=== PATIENT | male | born 1955 | race Caucasian/White ===

== ENCOUNTER 2017-08-11 17:34 | Emergency (ER) | payer MEDICARE, BC ==
[2017-08-11 17:44] VITALS: RESP 18; TEMP 97
[2017-08-11 18:51] LABS: Anisocytosis Slight; Basophils % (A) 0 %; CH 30.9; CHCM 33.5; Eosinophils % (A) 1 %; HCT 40.6 % (39.0-53.0); HDW 3.52; HGB 13.2 gm/dL (13.0-17.5); Hypochromasia Slight; Luc # (Auto) 0.03; Luc % (Auto) 1; Lymphocytes # (A) 0.2 k/uL (1.0-4.8); Lymphocytes % (A) 7 %; MCH 30.2 pg (25.0-35.0); MCHC 32.7 g/dL (31.0-37.0); MCV 92.6 fL (80.0-100.0); Mean Platelet Volume 7.5; Monocytes # (A) 0.2 k/uL (0-1.0); Monocytes % (A) 6 %; Neutrophils # (A) 2.5 k/uL (1.3-7.7); Neutrophils % (A) 86 %; Poikilocytosis Slight; RBC 4.38 m/uL (4.30-5.90); RDW 16.4 % (11.5-15.5); WBC 2.9 k/uL (3.8-10.6); WBC (Perox) 2.84
[2017-08-11 18:56] LABS: Anion Gap 9 mmol/L; Blood Urea Nitrogen 18 mg/dL (9-20); Carbon Dioxide 23 mmol/L (22-30); Chloride 109 mmol/L (98-107); Glucose 68 mg/dL (74-99); Non-African American GFR(MDRD) >60 (>60 ml/min/1.73 sqM); Potassium 4.8 mmol/L (3.5-5.1); Sodium 141 mmol/L (137-145)
[2017-08-11 19:04] LABS: Manual Review Performed; Ovalocytes Present
--- NOTE | 2017-08-11 19:04 | CT ---
EXAMINATION: CT brain wo con DATE AND TIME: 08/11/2017 6:51 PM ORDERING PROVIDER: Stoney Hylton DO CLINICAL INDICATION: Change in mental status TECHNIQUE: Standard departmental protocol. COMPARISON: None. DESCRIPTION: The calvarium is intact. There is no intracranial hemorrhage. There is no mass or mass e ffect. There is no definite new attenuation defect. Remainder of the intra-axial and extra-axial comp artment examination is unremarkable. The paranasal sinuses, middle ear cavities, and mastoid sinus ai r cells are clear. The orbits are intact. IMPRESSION: NO ACUTE PROCESS.
--- NOTE | 2017-08-11 19:21 | ED ---
General Adult HPI - General Chief complaint: Anxiety Stated complaint: Anxiety Time Seen by Provider: 08/11/17 17:36 Source: EMS Mode of arrival: EMS Limitations: no limitations - History of Present Illness Initial comments: 62-year-old male presented for evaluation of bizarre behavior at home. States that she heard a few loud thuds come from the kitchen and when she came down stairs she found her getting up off the floor. She states that his hands and arms are rising above and behind his head and that he was not acting himself. He seemed to be in significant distress however was not indicating any pain. When she tried to question him concerning his actions he started to swear at her and DL. She called EMS and upon their arrival his activity it stopped and he returned to baseline. The patient denies any chest pain, shortness breath, headache, fever, chills, nausea, vomiting. He states that he has been on chemo for the last 6 months for renal cancer that has metastasized and informed to masses neck his pancreas. A few days ago he had an MRI but hasn 't been told the results. During discussion patient states that he is under a lot of stress and that this is causing him marked distress and anxiety. He states that he is at his baseline right now. - Related Data Home Medications Medication Instructions Recorded Confirmed INSULIN LISPRO (humaLOG) [humaLOG] 12 unit SQ W/BRKFST 12/15/13 08/11/17 Aspirin [Children's Aspirin] 81 mg PO DAILY 08/11/17 08/11/17 Calcitriol [Rocaltrol] 0.25 mcg PO Q7D 08/11/17 08/11/17 Ergocalciferol [Vitamin D2] 50,000 unit PO Q7D 08/11/17 08/11/17 Hydrocodone/Acetaminophen [[place] 1 tab PO Q8H PRN 08/11/17 08/11/17 5-325] INSULIN LISPRO (humaLOG) [humaLOG] 18 units SQ W/LUNCH 08/11/17 08/11/17 INSULIN LISPRO (humaLOG) [humaLOG] 20 units SQ W/SUPPER 08/11/17 08/11/17 Insulin Glargine [Lantus] 52 unit SQ QAM 08/11/17 08/11/17 Losartan [Cozaar] 25 mg PO DAILY 08/11/17 08/11/17 Magnesium Oxide [Magox 400] 400 mg PO BID 08/11/17 08/11/17 Phosphorus 250mg 500 mg PO BID@0900,1700 08/11/17 08/11/17 Votrient 200mg 600 mg PO DAILY 08/11/17 08/11/17 Zortress 0.75mg 0.75 mg PO BID 08/11/17 08/11/17 predniSONE 5 mg PO W/BRKFST 08/11/17 08/11/17 Allergies Allergy/AdvReac Type Severity Reaction Status Date / Time celecoxib [From Celebrex] Allergy Rash/Hives Verified 08/11/17 18:53 kiwi Allergy Unknown Verified 08/11/17 18:53 metrizamide Allergy Unknown Verified 08/11/17 18:53 LOXAGLATE SODIUM Allergy Unknown Uncoded 08/11/17 18:53 Review of Systems ROS Statement: Those systems with pertinent positive or pertinent negative responses have been documented in the HPI. ROS Other: All systems not noted in ROS Statement are negative. Constitutional: Denies: fever, chills Eyes: Denies: eye pain, eye discharge ENT: Denies: ear pain, throat pain Respiratory: Denies: cough, dyspnea, wheezes Cardiovascular: Denies: chest pain, palpitations, dyspnea on exertion Endocrine: Denies: fatigue, polydipsia, polyuria Gastrointestinal: Denies: abdominal pain, nausea, vomiting Genitourinary: Denies: urgency, dysuria Musculoskeletal: Denies: back pain, arthralgia, myalgia Skin: Denies: rash, lesions, change in color Neurological: Denies: headache, weakness Psychiatric: Reports: anxiety, depression, other (Bizarre activity that was witnessed by the ). Denies: auditory hallucinations, visual hallucinations , homicidal thoughts, suicidal thoughts Hematological/Lymphatic: Denies: easy bleeding, easy bruising Past Medical History Past Medical History: Cancer, Diabetes Mellitus, Dialysis, Hyperlipidemia, Hypertension, Renal Disease Additional Past Medical History / Comment(s): pancreatitis, type II diabetic, stage 4 kidney cancer. History of Any Multi-Drug Resistant Organisms: None Reported Past Surgical History: Heart Catheterization, Hernia Repair Additional Past Surgical History / Comment(s): kidney removed right R/T renal cell cancer, endoscopy, dialysis shunt removed, PERITONEAL DIALYSIS PORT HAVING SURG 02/08/2014 ON PERITONEAL PORT FOR POSS BLOCKAGE/KINK IN PORT Past Anesthesia/Blood Transfusion Reactions: No Reported Reaction Past Psychological History: No Psychological Hx Reported Smoking Status: Former smoker Past Alcohol Use History: None Reported Past Drug Use History: None Reported - Past Family History Mother Family Medical History: Diabetes Mellitus Brother(s) Family Medical History: Cancer Father Family Medical History: Coronary Artery Disease (CAD), Diabetes Mellitus Sister(s) Family Medical History: Diabetes Mellitus General Exam Limitations: no limitations General appearance: alert, in no apparent distress Head exam: Present: atraumatic, normocephalic, normal inspection Eye exam: Present: normal appearance, PERRL, EOMI. Absent: scleral icterus, conjunctival injection, periorbital swelling ENT exam: Present: normal exam, mucous membranes moist Neck exam: Present: normal inspection. Absent: tenderness, meningismus, lymphadenopathy Respiratory exam: Present: normal lung sounds bilaterally. Absent: respiratory distress, wheezes, rales, rhonchi, stridor Cardiovascular Exam: Present: regular rate, normal rhythm, normal heart sounds. Absent: systolic murmur, diastolic murmur, rubs, gallop, clicks GI/Abdominal exam: Present: soft, normal bowel sounds. Absent: distended, tenderness, guarding, rebound, rigid Rectal exam: Present: deferred Extremities exam: Present: normal inspection, full ROM, normal capillary refill. Absent: tenderness, pedal edema, joint swelling, calf tenderness Back exam: Present: normal inspection, full ROM Neurological exam: Present: alert, oriented X3, CN II-XII intact Psychiatric exam: Present: normal affect, normal mood Skin exam: Present: warm, dry, intact, normal color. Absent: rash Course Vital Signs 08/11/17 08/11/17 17:36 19:22 Temperature 97.0 F L Pulse Rate 70 62 Respiratory 18 18 Rate Blood Pressure 173/97 147/92 O2 Sat by Pulse 99 98 Oximetry EKG Findings - EKG Comments: EKG Findings:: Sinus bradycardia cardio with minimal voltage criteria for LVH and a ventricular rate of 58, OK interval 182, QRS 88, QT/QTc 400/392. Medical Decision Making - Medical Decision Making 62-year-old male with past medical history as noted above presented for evaluation of bizarre activity that occurred at home prior to arrival. Discussion with the patient prior to his 's arrival revealed that he has been anxious and depressed regarding his right nose is of cancer and the presumed recurrence. He states that his anxiety is only increasing and that he has not found an outlet to express his feelings. On physical examination cranial nerves II through XII are intact without focal neurologic deficits and the patient has normal gait and station. Lungs are clear to auscultation bilaterally and abdomen is soft without peritoneal signs of guarding, rigidity, or rebound. The remainder of the exam is benign. We'll obtain CT head as well as baseline labs and EKG. CT head showed no acute process and labs revealed no significant abnormalities. The patient's oncologist is out of the country at this time however the on- call oncologist at [facility] was called by the prior to coming to the ED and was recontacted. She states that the plan for his workup here in the ED was appropriate and that she had no further recommendations. She further stated that his MRI that was in the other day showed a stable if not improved appearance of the masses around the pancreas. She advised discharge home and follow up early next week if his workup was benign. The patient and his were informed of this discussion as well as these results. They're advised to follow-up with [facility] next week but return to this facility if his symptoms should worsen or persist. The patient and his acknowledged an understanding of this information and agreed with this plan of care. - Lab Data Result diagrams: 08/11/17 18:31 08/11/17 18:31 Lab Results 08/11/17 08/11/17 Range/Units 18:31 18:31 WBC 2.9 L (3.8-10.6) k/uL RBC 4.38 (4.30-5.90) m/uL Hgb 13.2 (13.0-17.5) gm/dL Hct 40.6 (39.0-53.0) % MCV 92.6 (80.0-100.0) fL MCH 30.2 (25.0-35.0) pg MCHC 32.7 (31.0-37.0) g/dL RDW 16.4 H (11.5-15.5) % Plt Count 99 L (150-450) k/uL Neutrophils % 86 % Lymphocytes % 7 % Monocytes % 6 % Eosinophils % 1 % Basophils % 0 % Neutrophils # 2.5 (1.3-7.7) k/uL Lymphocytes # 0.2 L (1.0-4.8) k/uL Monocytes # 0.2 (0-1.0) k/uL Eosinophils # 0.0 (0-0.7) k/uL Basophils # 0.0 (0-0.2) k/uL Manual Slide Review Performed Hypochromasia Slight Poikilocytosis Slight Anisocytosis Slight Ovalocytes Present Sodium 141 (137-145) mmol/L Potassium 4.8 (3.5-5.1) mmol/L Chloride 109 H (98-107) mmol/L Carbon Dioxide 23 (22-30) mmol/L Anion Gap 9 mmol/L BUN 18 (9-20) mg/dL Creatinine 1.06 (0.66-1.25) mg/dL Est GFR (MDRD) Af Amer >60 (>60 ml/min/1.73 sqM) Est GFR (MDRD) Non-Af >60 (>60 ml/min/1.73 sqM) Glucose 68 L (74-99) mg/dL Calcium 10.0 (8.4-10.2) mg/dL Disposition Clinical Impression: Bizarre behavior, Acute anxiety Disposition: HOME SELF-CARE Condition: Stable Instructions: Generalized Anxiety Disorder (ED) Referrals: Jose Alberto Pablo MD [Primary Care Provider] - 1-2 days Time of Disposition: 19:21
[2017-08-11 19:23] VITALS: BP 147/92; PULSE 62
== END 2017-08-11 19:39 | disposition home or self-care (01) ==
LOC: EC 17:34
DX: F41.9 Anxiety disorder, unspecified (principal); I10 Essential (primary) hypertension; E11.9 Type 2 diabetes mellitus without complications; Z87.891 Personal history of nicotine dependence; Z79.4 Long term (current) use of insulin; Z79.52 Long term (current) use of systemic steroids; Z79.82 Long term (current) use of aspirin; Z79.899 Other long term (current) drug therapy; Z88.6 Allergy status to analgesic agent; Z88.8 Allergy status to other drugs, medicaments and biological substances; Z91.048 Other nonmedicinal substance allergy status; Z91.041 Radiographic dye allergy status; Z85.528 Personal history of other malignant neoplasm of kidney; Z90.5 Acquired absence of kidney
CPT/HCPCS: 36415; 70450; 80048; 85025; 93005; 99284